=== PATIENT | male | born 1990 | race Caucasian/White ===

== ENCOUNTER 2023-11-17 06:58 | Emergency (ER) | payer SELFPAY, OTHER ==
[~2023-11-17] VITALS: Ht 172.7 cm; Wt 143.0 kg
[2023-11-17] MEDS ORDERED: CYCL-837 PO (08:03)
[2023-11-17] MEDS ORDERED: IBUP-1455 PO (08:03)
[2023-11-17 08:06] VITALS: BP 124/80; PULSE 66; RESP 17; TEMP 97.9; O2SAT 98
== END 2023-11-17 08:12 | disposition home or self-care (01) ==
LOC: ER 06:58
DX: S13.4XXA Sprain of ligaments of cervical spine, initial encounter (principal); S29.012A Strain of muscle and tendon of back wall of thorax, initial encounter; V89.2XXA Person injured in unspecified motor-vehicle accident, traffic, initial encounter; Y93.89 Activity, other specified; Y92.89 Other specified places as the place of occurrence of the external cause; Y99.8 Other external cause status

== ENCOUNTER 2024-10-20 08:34 | Emergency (ER) | payer SELFPAY ==
[~2024-10-20] VITALS: Ht 172.7 cm; Wt 12.4 kg
[~2024-10-20 08:34] MED LIST: CYCL-837 PO; IBUP-1455 PO
--- NOTE | 2024-10-20 08:47 | ECG ---
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
--- NOTE | 2024-10-20 08:59 | ED.PDOC ---
HPI Comments 33 y/o M, with no prior medical history presents to the ED for CC of chest pain. Patient states, he has been experiencing substernal non-radiating chest pain x3days. Patient describes, pain to be sharp and pressure like in nature. Patient denies shortness of breath, palpitations, headache, or dizziness. No other symptoms or modifying factors present at this time. Chief Complaint: Chest Pain Time Seen by MD: 08:50 Primary Care Provider: CIARA Marie Notes: Nurses Notes, Medications, Allergies Allergies: Coded Allergies: NO KNOWN ALLERGIES (Unverified , 11/17/23) Home Meds Active Scripts Cyclobenzaprine Hcl (Cyclobenzaprine Hcl) 5 Mg Tab, 1 TAB PO TID PRN, #30 TAB Prov:PATRICIA LOMAS 11/17/23 Ibuprofen Micronized (Ibuprofen) 800 Mg Tab, 800 MG PO TID, #60 TAB Prov:PATRICIA LOMAS 11/17/23 Information Source: Patient Mode of Arrival: Ambulatory Severity: Moderate Timing: Days Duration: Since onset Prehospital treatment: None Location: Substernal Radiation: No Radiation Quality: Sharp, Pressure Onset: At Rest Cardiac Risk Factors: None PE Risk Factors: None History of: None Modifying Factors: Nothing Associated Signs and Symptoms: None Past Medical History PAST MEDICAL HISTORY: Denies Surgical History: Denies all surgeries Family History Family History: Unknown Social History Smoker: Non-Smoker Alcohol: Denies ETOH Use Drugs: Denies Drug Use Lives In: Home Constitutional: denies: chills, diaphoresis, fatigue, fever, malaise, sweats, weakness, others EENTM: denies: blurred vision, double vision, ear bleeding, ear discharge, ear drainage, ear pain, ear ringing, eye pain, eye redness, hearing loss, mouth pain, mouth swelling, nasal discharge, nose bleeding, nose congestion, nose pain, photophobia, tearing, throat pain, throat swelling, voice changes, others Respiratory: denies: cough, hemoptysis, orthopnea, SOB at rest, shortness of breath, SOB with excertion, stridor, wheezing, others Cardiovascular: reports: chest pain; denies: dizzy spells, diaphoresis, Dyspnea on exertion, edema, irregular heart beat, left arm pain, lightheadedness, palpitations, PND, syncope, others Gastrointestinal: denies: abdomen distended, abdominal pain, blood streaked bowels, constipated, diarrhea, dysphagia, difficulty swallowing, hematemesis, melena, nausea, poor appetite, poor fluid intake, rectal bleeding, rectal pain, vomiting, others Genitourinary: denies: burning, dysuria, flank pain, frequency, hematuria, incontinence, penile discharge, penile sore, pain, testicle pain, testicle swelling, urgency, others Neurological: denies: dizziness, fainting, headache, left sided numbness, left sided weakness, numbness, paresthesia, pre-existing deficit, right sided numbness, right sided weakness, seizure, speech problems, tingling, tremors, weakness, others Musculoskeletal: denies: back pain, gout, joint pain, joint swelling, muscle pain, muscle stiffness, neck pain, others Integumetry: denies: bruises, change in color, change in hair/nails, dryness, laceration, lesions, lumps, rash, wounds, others Allergic/Immunocompromised: denies: Difficulty Healing, Frequent Infections, Hives, Itching, others Hematologic/Lymphatic: denies: anemia, blood clots, easy bleeding, easy bruising, swollen glands, others Endocrine: denies: excessive hunger, excessive sweating, excessive thirst, excessive urination, flushing, intolerance to cold, intolerance to heat, unexplained weight gain, unexplained weight loss, others Psychiatric: denies: anxiety, bipolar disorder, depression, hopeless, panic disorder, schizophrenia, sleepless, suicidal, others All Other Systems: Reviewed and Negative Physical Exam General Appearance: Moderate Distress HEENT: Normal ENT Inspection, Pharynx Normal, TMs Normal Neck: Full Range of Motion, Non-Tender, Normal, Normal Inspection Respiratory: Chest Non-Tender, Lungs Clear, No Accessory Muscle Use, No R espiratory Distress, Normal Breath Sounds Cardiovascular: No Edema, No JVD, No Murmur, No Gallop, Normal Peripheral Pulses, Regular Rate/Rhythm Breast Exam: Deferred Gastrointestinal: No Organomegaly, Non Tender, No Pulsatile Mass, Normal Bowel Sounds, Soft Genitalia: Deferred Pelvic: Deferred Rectal: Deferred Extremities: No calf tenderness, Normal capillary refill, Normal inspection, Normal range of motion, Non-tender, No pedal edema Musculoskeletal : Apperance: Normal Neurologic: Alert, pot annealer II-XII nml as Tested, No Motor Deficits, Normal Affect, Normal Mood, No Sensory Deficits Cerebellar Function: Normal Reflexes: Normal Skin: Dry, Normal Color, Warm Peripheral Pulses: 3+ Radial (R), 3+ Radial (L) Lymphatic: No Adenopathy EKG EKG : Pulse Rate (adult): 63 [place]: Normal Cardiac Rhythm: NSR Block: None Hypertrophy: None ST: Normal Was a procedure done? Was a procedure done?: No CP Differential Dx Differential Diagnosis: A-fib, A-Flutter, Angina, Anxiety / Panic Attack, Atria l Dysrhythmia, Electrolyte Disorder, N/A Differential Diagnosis: Chest Wall Pain, Costochondritis, Esophageal reflux/spasm, Gastritis X-Ray, Labs, Meds, VS Vital Signs Date Time Temp Pulse Resp B/P (MAP) Pulse Ox O2 Delivery O2 Flow Rate FiO2 10/20/24 09:00 63 10/20/24 08:42 63 10/20/24 08:42 97.8 60 18 129/71 (90) 99 97.8 Lab Test 10/20/24 08:53 Range/Units Troponin I High Sensitivity < 3 L </=54 ng/L Patient alert. No sign of distress. Vitals stable. Answering questions. EKG reviewed does not show any acute changes. Cardiac marker within normal limits. Saturation pristine on room air. No leg swelling. No risk factors for coronary artery disease. Explained to the patient. Was told to follow up with his primary care physician. Was told to come back if there is any problem. Time of 1ST Reevaluation: 09:20 Reevaluation 1ST: Improved Time of 2ND Reevaluation: 10:13 Reevaluation 2ND: Improved Patient Education/Counseling: Diagnosis, Treatment Family Education/Counseling: No Family Present SEPSIS Sepsis Screen Date sepsis recognized/suspect: Oct 20, 2024 Time Sepsis recognized/suspect: 0843 Recent Procedure: No On Antibiotic Therapy: No Respiratory Rate >20: No Heart Rate >90: No Temp<36 C (96.8 F) or >38.3 C: No SBP <90 or MAP <65 mmHG: No New Acute Mental Status Change: No Is the patient on CPAP, BIPAP,: No Physician Orders Troponin-I Hs (10/20/24 09:42) Troponin-I Hs (10/20/24 11:42) Electrocardigram (10/20/24 09:42) Electrocardigram (10/20/24 11:42) Vital Signs Date Time Temp Pulse Resp B/P (MAP) Pulse Ox O2 Delivery O2 Flow Rate FiO2 10/20/24 09:00 63 10/20/24 08:42 63 10/20/24 08:42 97.8 60 18 129/71 (90) 99 97.8 Departure 1 Departure Time of Disposition: 10:13 Impression: Primary Impression: Musculoskeletal chest pain Additional Impression: Anxiety Disposition: 01 HOME / SELF CARE / HOMELESS Condition: Good Discharged With: Self Critical Care Note Critical Care Time?: No Stability Stability form required: No Heart Score Heart Score: Heart Score Response (Comments) Value History Slightly Suspicious 0 EKG Normal 0 Age <45 0 Risk Factors No known risk factors 0 Troponin Normal limit 0 Total 0 I personally scribed for ELIZABETH PETERSON MD ([email or web address]) on 10/20/24 at 08:59. Electronically submitted by Lotus Guerra ([email or web address]). I personally scribed for ELIZABETH PETERSON MD ([email or web address]) on 10/20/24 at 09:00. Electronically submitted by Lotus Guerra ([email or web address]). ELIZABETH PETERSON MD Oct 20, 2024 08:59
[2024-10-20 10:33] VITALS: BP 117/62; TEMP 98.7
[2024-10-20 10:37] VITALS: PULSE 83; RESP 16; O2SAT 99
== END 2024-10-20 10:39 | disposition home or self-care (01) ==
LOC: ER 08:34
DX: M79.18 Myalgia, other site (principal); F41.9 Anxiety disorder, unspecified; Z79.899 Other long term (current) drug therapy
CPT/HCPCS: 36415; 84484; 93005